=== PATIENT | female | born 1965 | race Caucasian/White ===

== ENCOUNTER 2022-11-05 21:36 | Inpatient (IN) | payer BC ==
[~2022-11-05] VITALS: Ht 152.4 cm; Wt 72.1 kg
--- NOTE | 2022-11-05 21:47 | NUR ---
PT OFFLOADED TO [facility]
[2022-11-05 21:48] VITALS: BP 143/87
[2022-11-05] MEDS ORDERED: LIDOCAINE 5% 1 EA PATCH TP ONE (23:00)
[2022-11-05 23:20] LABS: BASOPHILS # (AUTO) 0.1 K/uL (0.00-0.22); BASOPHILS % (AUTO) 0.7 % (0.0-2.0); EOSINOPHILS # (AUTO) 0.5 K/uL (0-0.4); EOSINOPHILS % (AUTO) 3.5 % (0.0-4.0); HEMATOCRIT 44.8 % (36-48); HEMOGLOBIN 15.4 g/dL (12.0-16.0); LYMPHOCYTES # (AUTO) 1.6 K/uL (2.5-16.5); MEAN CORPUSCULAR HEMOGLOBIN 32 pg (27-31); MEAN CORPUSCULAR HGB CONC 34 g/dL (33-37); MEAN CORPUSCULAR VOLUME 93.4 fL (80-94); MONOCYTES # (AUTO) 0.6 K/uL (0.8-1.0); MONOCYTES % (AUTO) 4.4 % (1.7-9.3); NEUTROPHILS # (AUTO) 10.8 K/uL (1.8-7.7); NEUTROPHILS % (AUTO) 79.4 % (42.2-75.2); PLATELET COUNT (AUTO) 305 K/uL (140-450); RED BLOOD CELL COUNT(AUTO) 4.79 MIL/uL (4.20-5.40); WHITE BLOOD COUNT (AUTO) 13.6 K/uL (4.8-10.8)
[2022-11-05 23:44] LABS: ALBUMIN 4.1 g/dL (3.4-5.0); ANION GAP 12.9 (8-16); ASPARTATE AMINOTRANSFERASE 11 U/L (15-37); CARBON DIOXIDE 29.7 mmol/L (21-32); CHLORIDE 96 mmol/L (98-107); CREATININE 1.1 mg/dL (0.6-1.3); GFR ARICAN-AMERICAN 66 mL/min (>90); GLUCOSE 330 mg/dL (74-106); POTASSIUM 3.6 mmol/L (3.5-5.1); SODIUM SERUM 135 mmol/L (136-145); TOTAL BILIRUBIN 0.6 mg/dL (0.0-1.0); UREA NITROGEN, BLOOD 15 mg/dL (7-18)
--- NOTE | 2022-11-06 00:19 | NUR ---
PT TO CT
[2022-11-06] MEDS ORDERED: ONDANSETRON 4 MG/2 ML VIAL IVP ONE (02:40)
[2022-11-06] MEDS ORDERED: MORPHINE SULFATE 4 MG/ML SYR IVP ONE ×2 (02:40→05:05)
[2022-11-06] MEDS ORDERED: NACL 0.9% 1,000 ML IV ONE (02:45)
--- NOTE | 2022-11-06 02:46 | NUR ---
PT MOVED TO BED #12
--- NOTE | 2022-11-06 03:00 | NUR ---
ASSUMED CARE OF PT AT THIS TIME. PT IN POSITION OF COMFORT. UPDATED PT ON POC WITH FULL RETURNED VERBAL UNDERSTANDING.
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
--- NOTE | 2022-11-06 07:40 | NUR ---
REPORT TO PAUL CAZARES
[2022-11-06] MEDS ORDERED: ATOR40TA PO (07:48)
[2022-11-06] MEDS ORDERED: ASPI-1749 PO (07:48)
[2022-11-06] MEDS ORDERED: TICA90TA PO (07:48)
[2022-11-06] MEDS ORDERED: METO25TE2 PO (07:48)
[2022-11-06] MEDS ORDERED: LISI30TA6 PO (07:48)
--- NOTE | 2022-11-06 07:48 | NUR ---
RECEIVED REPORT FROM ANGEL LUIS. MED REC COMPLETED. PT CALM AND RESTING.
--- NOTE | 2022-11-06 09:53 | NUR ---
PATIENT HAS BEEN SCREENED AND CATEGORIZED MODERATE NUTRITION RISK. PATIENT WILL BE SEEN WITHIN 3-5 DAYS OF ADMISSION. REVIEWED BY MANSI CROUCH RD
--- NOTE | 2022-11-06 10:05 | NUR ---
Josh gamez in [facility] - 11/06/22 at 1045 by [facility] WRITTEN ORDERS RECEIVED FROM MD FREED. ORDERS CONFIRMED AND CARRIED OUT NORCO 10MG PO Q6H PRN
--- NOTE | 2022-11-06 10:05 | NUR ---
WRITTEN ORDERS RECEIVED FROM MD FREED. ORDERS CONFIRMED AND CARRIED OUT NORCO 10/325MG PO Q6H PRN
[2022-11-06] MEDS ORDERED: HYDROcodone/APAP 10/325 MG 1 TAB TAB PO PRN (10:10)
[2022-11-06] MEDS ORDERED: ACETAMINOPHEN 325 MG TAB PO PRN (13:30)
[2022-11-06] MEDS ORDERED: POTASSIUM CHLORIDE 10 MEQ TABER PO PRN (13:30)
[2022-11-06] MEDS ORDERED: ONDANSETRON 4 MG/2 ML VIAL IVP PRN (13:30)
[2022-11-06] MEDS ORDERED: MAG SULF 2000 MG/WATER PREMIX 50 ML IV PRN (13:30)
[2022-11-06] MEDS: NACL 0.9% 1,000 ML IV SCH (13:48)
[2022-11-06 14:15] LABS: BASOPHILS % (AUTO) 0.3 % (0.0-2.0); EOSINOPHILS # (AUTO) 0.4 K/uL (0-0.4); HEMATOCRIT 43.2 % (36-48); LYMPHOCYTES # (AUTO) 1.9 K/uL (2.5-16.5); LYMPHOCYTES % (AUTO) 24.6 % (20.5-51.1); MEAN CORPUSCULAR HEMOGLOBIN 32 pg (27-31); MEAN CORPUSCULAR HGB CONC 35 g/dL (33-37); MEAN CORPUSCULAR VOLUME 93.1 fL (80-94); MONOCYTES # (AUTO) 0.4 K/uL (0.8-1.0); MONOCYTES % (AUTO) 5.7 % (1.7-9.3); NEUTROPHILS # (AUTO) 4.9 K/uL (1.8-7.7); NEUTROPHILS % (AUTO) 64.4 % (42.2-75.2); PLATELET COUNT (AUTO) 294 K/uL (140-450); RED BLOOD CELL COUNT(AUTO) 4.64 MIL/uL (4.20-5.40); RED CELL DISTRIBUTION WIDTH 13.2 % (11.6-13.7); WHITE BLOOD COUNT (AUTO) 7.6 K/uL (4.8-10.8)
[2022-11-06 14:37] LABS: PROTHROMBIN TIME 9.8 secs (10.8-13.4)
[2022-11-06 14:38] LABS: ANION GAP 12.4 (8-16); CARBON DIOXIDE 28.4 mmol/L (21-32); CREATININE 0.9 mg/dL (0.6-1.3); POTASSIUM 3.8 mmol/L (3.5-5.1)
[2022-11-06 14:54] LABS: CHOL/HDL RATIO 4.1 (1-4.5); FREE T4 (FREE THYROXINE) 1.27 ng/dL (0.76-1.46); MAGNESIUM 1.6 mg/dL (1.8-2.4); PHOSPHORUS 3.3 mg/dL (2.5-4.9); THYROID STIMULATING HORMONE 4.44 uIU/mL (0.34-3.74)
--- NOTE | 2022-11-06 14:56 | NUR ---
pt at rest w/ eyes closed.respirations even and unlabored. on site monitor.
[2022-11-06 19:25] LABS: BARBITURATE, URINE NEGATIVE ng/ml (NEG <=200); BENZODIAZEPINE, URINE NEGATIVE ng/mL (NEG <=200); CANNABINOID, URINE POSITIVE ng/mL (NEG <=50); COCAINE, URINE POSITIVE ng/mL (NEG <=300); OPIATE, URINE POSITIVE ng/mL (NEG <=2000); PHENCYCLIDINE SCREEN,URINE NEGATIVE ng/mL (NEG <=25)
--- NOTE | 2022-11-06 19:31 | NUR ---
REPORT GIVEN TO LIZBETH ARROYO. TRANSFER OF CARE AT THIS TIME
--- NOTE | 2022-11-06 19:40 | NUR ---
pt on the phone and asked for privacy. eating food, tolerated well
--- NOTE | 2022-11-06 20:45 | NUR ---
pt ambulated to restroom
--- NOTE | 2022-11-06 20:50 | NUR ---
pt back in room, on cardiac catheterization technologist
[2022-11-06] MEDS: DOCUSATE SODIUM 100 MG GELCAP PO SCH (21:47)
[2022-11-06 21:50] LABS: APPEARANCE,URINE CLEAR (CLEAR); BILIRUBIN,URINE NEGATIVE (NEGATIVE); BLOOD, URINE NEGATIVE (NEGATIVE); COLOR,URINE YELLOW (YELLOW); LEUKOCYTE ESTERASE ,URINE NEGATIVE (NEGATIVE); NITRITE, URINE NEGATIVE (NEGATIVE); PH,URINE 5.5 (5.0-9.0); UGLUCOSE 3+ (NEGATIVE)
--- NOTE | 2022-11-06 21:58 | NUR ---
Patient will be admitted to care of Lorin Galvez. Admited to tele. Will go to room 107A. Belongings list completed. Report to Nurse
--- NOTE | 2022-11-06 22:34 | NUR ---
The patient's care was reviewed and supervised by Petra Santiago RN.
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
[2022-11-07 01:01] VITALS: BP 125/62
[2022-11-07] MEDS: HYDROcodone/APAP 7.5/325 MG 1 TAB PO PRN ×2 (04:21→19:26)
[2022-11-07 04:39] VITALS: BP 125/65
[2022-11-07 07:06] LABS: MAGNESIUM 1.8 mg/dL (1.8-2.4); PHOSPHORUS 2.9 mg/dL (2.5-4.9)
[2022-11-07 07:07] LABS: CARBON DIOXIDE 27.2 mmol/L (21-32); CREATININE 0.8 mg/dL (0.6-1.3); POTASSIUM 4.2 mmol/L (3.5-5.1)
--- NOTE | 2022-11-07 07:21 | NUR ---
CLOSING NO CHANGE ON STATUS, NO DISTRESS NOTED, REPORT GIVEN TO SAGE REINA PER SBAR AT BEDSIDE
[2022-11-07 08:04] VITALS: BP 105/57
[2022-11-07] MEDS: lisinopriL 10 MG TAB PO SCH (08:06)
[2022-11-07] MEDS: METOPROLOL SUCCINATE 50 MG TABER PO SCH (08:06)
[2022-11-07 08:13] LABS: BASOPHILS # (AUTO) 0.1 K/uL (0.00-0.22); BASOPHILS % (AUTO) 0.8 % (0.0-2.0); EOSINOPHILS # (AUTO) 0.4 K/uL (0-0.4); EOSINOPHILS % (AUTO) 5.4 % (0.0-4.0); HEMATOCRIT 37.9 % (36-48); HEMOGLOBIN 13.3 g/dL (12.0-16.0); LYMPHOCYTES # (AUTO) 1.5 K/uL (2.5-16.5); LYMPHOCYTES % (AUTO) 22.1 % (20.5-51.1); MEAN CORPUSCULAR HEMOGLOBIN 33 pg (27-31); MEAN CORPUSCULAR HGB CONC 35 g/dL (33-37); MEAN CORPUSCULAR VOLUME 92.7 fL (80-94); MONOCYTES # (AUTO) 0.5 K/uL (0.8-1.0); MONOCYTES % (AUTO) 7.1 % (1.7-9.3); NEUTROPHILS # (AUTO) 4.4 K/uL (1.8-7.7); NEUTROPHILS % (AUTO) 64.6 % (42.2-75.2); PLATELET COUNT (AUTO) 230 K/uL (140-450); RED BLOOD CELL COUNT(AUTO) 4.09 MIL/uL (4.20-5.40); RED CELL DISTRIBUTION WIDTH 13.1 % (11.6-13.7); WHITE BLOOD COUNT (AUTO) 6.7 K/uL (4.8-10.8)
[2022-11-07] MEDS: DOCUSATE SODIUM 100 MG GELCAP PO SCH ×2 (08:35→20:09)
[2022-11-07] MEDS: ASPIRIN 81 MG TAB.CHEW PO SCH (08:35)
[2022-11-07] MEDS: ATORVASTATIN 20 MG TAB PO SCH (08:35)
[2022-11-07] MEDS: PANTOPRAZOLE 40 MG INJ VIAL IVP SCH (08:36)
[2022-11-07] MEDS: NACL 0.9% 1,000 ML IV SCH (08:36)
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
[2022-11-07 12:00] VITALS: BP 138/80
--- NOTE | 2022-11-07 14:17 | NUR ---
NURSES NOTE PATIENT CT DONE TODAY STILL NO RESULT TILL NOW .
[2022-11-07 16:00] VITALS: BP 130/70
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
--- NOTE | 2022-11-07 19:26 | NUR ---
RECEIVED PT IN BED AWAKE, ALERT AND ORIENTED X 4. COMPLAINING OF 7/10 MID CHEST PAIN, NORCO GIVEN ORDERED. DENIES SHORTNESS OF BREATH. SKIN WARM AND DRY TO TOUCH. IVF INFUSING WELL ORDERED. SAFETY PRECAUTION IN PLACE, CALL LIGHT IN REACH.
--- NOTE | 2022-11-07 19:31 | NUR ---
REPORT GIVEN TO SMILEY CAZARES , ALL HER QUESTION ANSWER .
[2022-11-07 20:00] VITALS: BP 114/44
--- NOTE | 2022-11-07 22:32 | NUR ---
PT MOVED TO RM 107B. ALL BELONGINGS WITH PT.
[2022-11-08] VITALS: BP 129/71
--- NOTE | 2022-11-08 02:10 | NUR ---
ROUNDING DONE. PT ASLEEP. NO S/SX OF PAIN NOR DISCOMFORT. CALL LIGHT IN REACH.
[2022-11-08] MEDS: HYDROcodone/APAP 7.5/325 MG 1 TAB PO PRN (03:49)
[2022-11-08 04:00] VITALS: BP 151/83
[2022-11-08] MEDS: NACL 0.9% 1,000 ML IV SCH (04:49)
--- NOTE | 2022-11-08 06:22 | NUR ---
PATIENT IS ASLEEP. ALL NEEDS ATTENDED TO. NO S/SX OF DISTRESS NOTED. SAFETY PRECAUTIONS IN PLACE, CALL LIGHT IN REACH.
[2022-11-08 06:57] LABS: BASOPHILS % (AUTO) 0.7 % (0.0-2.0); EOSINOPHILS # (AUTO) 0.3 K/uL (0-0.4); EOSINOPHILS % (AUTO) 5.2 % (0.0-4.0); HEMATOCRIT 37.8 % (36-48); HEMOGLOBIN 13.2 g/dL (12.0-16.0); LYMPHOCYTES # (AUTO) 1.3 K/uL (2.5-16.5); LYMPHOCYTES % (AUTO) 23.8 % (20.5-51.1); MEAN CORPUSCULAR HEMOGLOBIN 33 pg (27-31); MEAN CORPUSCULAR HGB CONC 35 g/dL (33-37); MEAN CORPUSCULAR VOLUME 92.7 fL (80-94); MONOCYTES # (AUTO) 0.4 K/uL (0.8-1.0); MONOCYTES % (AUTO) 7.7 % (1.7-9.3); NEUTROPHILS # (AUTO) 3.5 K/uL (1.8-7.7); NEUTROPHILS % (AUTO) 62.6 % (42.2-75.2); PLATELET COUNT (AUTO) 239 K/uL (140-450); RED BLOOD CELL COUNT(AUTO) 4.07 MIL/uL (4.20-5.40); RED CELL DISTRIBUTION WIDTH 12.8 % (11.6-13.7); WHITE BLOOD COUNT (AUTO) 5.5 K/uL (4.8-10.8)
[2022-11-08 07:18] LABS: MAGNESIUM 1.7 mg/dL (1.8-2.4); PHOSPHORUS 3.5 mg/dL (2.5-4.9)
[2022-11-08 07:37] LABS: ANION GAP 11.6 (8-16); CARBON DIOXIDE 27.5 mmol/L (21-32); CREATININE 0.8 mg/dL (0.6-1.3); POTASSIUM 4.1 mmol/L (3.5-5.1)
[2022-11-08 08:00] VITALS: BP 151/85
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
[2022-11-08] MEDS: lisinopriL 10 MG TAB PO SCH (08:35)
[2022-11-08] MEDS: DOCUSATE SODIUM 100 MG GELCAP PO SCH (08:36)
[2022-11-08] MEDS: METOPROLOL SUCCINATE 50 MG TABER PO SCH (08:36)
[2022-11-08] MEDS: ASPIRIN 81 MG TAB.CHEW PO SCH (08:36)
[2022-11-08] MEDS: ATORVASTATIN 20 MG TAB PO SCH (08:37)
[2022-11-08] MEDS: PANTOPRAZOLE 40 MG INJ VIAL IVP SCH (08:37)
--- NOTE | 2022-11-08 09:00 | NUR ---
DUE MEDICATION GIVEN AND TOLERATED WELL. SEEN BY DR. PERDOMO AND DISCUSSED THE PLAN OF CARE. WILL DC TODAY.
[2022-11-08] MEDS ORDERED: CYCL-711 PO (09:23)
[2022-11-08] MEDS ORDERED: ACET-10509 PO (09:23)
--- NOTE | 2022-11-08 11:15 | NUR ---
D/C HOME VIA WHEELCHAIR. A & O X4. SPEECH CLEAR. NO C/O PAIN. IN STABLE CONDITION. INFORMED SCARFER -JENNIFER GALINDO.
== END 2022-11-08 11:15 | disposition home or self-care (01) | DRG 605 ==
LOC: MED 21:36 → MTU 11-06 08:58
DX: S20.219A Contusion of unspecified front wall of thorax, initial encounter (principal); E87.1 Hypo-osmolality and hyponatremia; Z20.822 Contact with and (suspected) exposure to COVID-19; I10 Essential (primary) hypertension; E11.9 Type 2 diabetes mellitus without complications; E78.00 Pure hypercholesterolemia, unspecified; I25.10 Atherosclerotic heart disease of native coronary artery without angina pectoris; S30.1XXA Contusion of abdominal wall, initial encounter; X58.XXXA Exposure to other specified factors, initial encounter; E87.8 Other disorders of electrolyte and fluid balance, not elsewhere classified; Z96.653 Presence of artificial knee joint, bilateral; D72.829 Elevated white blood cell count, unspecified; Y93.89 Activity, other specified; Y92.89 Other specified places as the place of occurrence of the external cause; Y99.8 Other external cause status; V89.2XXA Person injured in unspecified motor-vehicle accident, traffic, initial encounter; I25.2 Old myocardial infarction; Z88.8 Allergy status to other drugs, medicaments and biological substances
CPT/HCPCS: 36415; 70450; 71260; 72125; 80048; 80053; 80305; 81003; 82140; 82150; 83036; 83605; 83690; 83735; 83880; 84100; 84439; 84443; 84484; 85025; 85610; 85730; 87040; 87081; 87086; 96361; 96374; 96375; 96376; 99285; C9113; J2270; J2405; Q9967